=== PATIENT | male | born 1990 | race Hispanic/Latino ===

== ENCOUNTER 2024-03-13 10:27 | Emergency (ER) | payer OTHER ==
[~2024-03-13] VITALS: Ht 162.6 cm; Wt 72.7 kg
[2024-03-13] MEDS: KETOROLAC 30 MG/ML 1ML VIAL IV ONE (13:23)
[2024-03-13 13:42] LABS: BASO # 0.1 10^3/uL (0.0-0.2); BASO % 0.7 % (0.0-1.0); EOS # 0.2 10^3/uL (0.0-0.5); EOS % 1.7 % (0.0-3.0); HEMATOCRIT 50.4 % (42.0-52.0); HEMOGLOBIN 17.5 g/dl (13.5-17.5); LYMPH % 24.4 % (24.0-44.0); MEAN CORPUSCULAR HEMOGLOBIN 30.9 pg (27.0-33.0); MEAN CORPUSCULAR HGB CONC 34.7 g/dl (32.0-36.5); MONO # 0.7 10^3/uL (0.0-0.8); MONO % 5.4 % (2.0-8.0); NEUTROPHILS # 8.3 10^3/uL (1.5-8.5); NEUTROPHILS % 67.6 % (36.0-66.0); PLATELET COUNT, AUTOMATED 290 10^3/uL (150-450); RED BLOOD COUNT 5.66 10^6/uL (4.30-6.10); WHITE BLOOD COUNT 12.2 10^3/uL (4.0-10.0)
[2024-03-13 13:48] LABS: ERYTHROCYTE SEDIMENTATION RATE < 1 mm/hr (0-15)
[2024-03-13 13:57] LABS: C REACTIVE PROTEIN QUANTITATIV < 0.40 MG/DL (<1.0)
[2024-03-13 13:58] LABS: BLOOD UREA NITROGEN 11 MG/DL (9-23); CALCIUM LEVEL 9.5 MG/DL (8.5-10.1); CARBON DIOXIDE LEVEL 30 MMOL/L (20-31); CHLORIDE LEVEL 104 MMOL/L (98-107); CREATININE FOR GFR 0.97 MG/DL (0.70-1.30); GLOMERULAR FILTRATION RATE > 60.0 (>60); GLUCOSE, FASTING 80 MG/DL (60-100); POTASSIUM SERUM 3.9 MMOL/L (3.5-5.1); SODIUM LEVEL 138 MMOL/L (136-145)
[2024-03-13] MEDS ORDERED: IBUP-1022 PO (14:47)
[2024-03-13] MEDS ORDERED: METH-1165 PO (14:47)
[2024-03-13] MEDS ORDERED: LIDO5DIS41 TD (14:48)
[2024-03-13 15:12] VITALS: BP 115/83; TEMP 97.9; O2SAT 96
== END 2024-03-13 15:14 | disposition home or self-care (01) ==
LOC: EDBD 10:27 → M ED 10:27
DX: M51.37 Other intervertebral disc degeneration, lumbosacral region (principal); M54.50 Low back pain, unspecified; Z91.018 Allergy to other foods; Z79.1 Long term (current) use of non-steroidal anti-inflammatories (NSAID); Z79.899 Other long term (current) drug therapy
CPT/HCPCS: 72131; 80048; 85025; 85652; 86140; 96374; 99284; J1885

== ENCOUNTER → 2024-03-28 | Outpatient (CLI) | payer OTHER ==
[~2024-03-28] MED LIST: IBUP-1022 PO; LIDO5DIS41 TD; METH-1165 PO
== END ==
LOC: M RAD 09:30
DX: M47.816 Spondylosis without myelopathy or radiculopathy, lumbar region (principal); M51.37 Other intervertebral disc degeneration, lumbosacral region; M48.061 Spinal stenosis, lumbar region without neurogenic claudication

== ENCOUNTER → 2024-11-20 | Outpatient (REF) | LOC: M PLAIMG 09:24 | PROVIDERS: ATTEND Internal Medicine | DX: M54.2 Cervicalgia (principal); M54.50 Low back pain, unspecified; M54.6 Pain in thoracic spine ==